=== PATIENT | female | born 1945 | race Hispanic/Latino ===

== ENCOUNTER 2018-07-08 16:37 | Emergency (ER) | payer MEDICARE ==
[~2018-07-08] VITALS: Ht 154.9 cm; Wt 72.6 kg
[~2018-07-08 16:37] MED LIST: BENZONATATE100 MG PO; D3 DOTS2000 UNIT PO; LANTUS SOLOSTAR SQ; METOPROLOL SUCC25 MG PO; PRAVASTATIN SOD40 MG PO
--- OUTSIDE RECORDS SUMMARY | 2018-07-08 16:40 | XMS REPORT ---
Author Author [facility] Address Unknown Phone Unavailable Care Team Providers Care Psychological Operations Specialist Name Role Phone Geovanny ANTOINE Unavailable Unavailable Problems This patient has no known problems. Allergies, Adverse Reactions, Alerts This patient has no known allergies or adverse reactions. Medications This patient has no known medications. Results Test Description Test Time Test Comments Text Results Atomic Results Result Comments CHEST SINGLE (PORTABLE) [place] [address] Patient Name: RAMIREZ MULLINS MR #: [id number] : 1945 Age/Sex: 72/F Req #: [id number] Adm Physician: Ordered by: GILMER KENNEDY MD Report #: [id number] Location: ER Room/Bed: Procedure: [id number] DX/CHEST SINGLE (PORTABLE) Exam Date: 02/23/17 Exam Time: 1905 REPORT STATUS: Signed CHEST SINGLE (PORTABLE), 02/23/2017 6:53 PM Technique: CHEST SINGLE (PORTABLE) Clinical history: Possible illness, low blood pressure Comparison: 06/17/2008 Findings: See Impression Impression: 1. Moderately enlarged cardiac silhouette, appears increased from 2007. 2. Diffuse opacities, likely edema with bibasilar atelectasis and small effusions, left greater the right. 3. Electronic precordial pacer/ICD overlies the left hemithorax. Signed by: Dr Dorcas Mckeon MD on 02/23/2017 7:41 PM Dictated By: DORCAS MCKEON MD 40 Transcribed By: SEVEN on 02/23/171940 COPY TO: GILMER KENNEDY MD
--- OUTSIDE RECORDS SUMMARY | 2018-07-08 16:40 | XMS REPORT | Clinical Summary ---
Author Author [facility] Address Unknown Phone Unavailable Care Team Providers Care Sheeter Helper Name Role Phone Valente Mejia PCP Allergies Comments Active Allergy Reactions Severity Noted Date Shellfish Containing Hives 02/04/2018 Products Medications End Date Status Medication Sig Dispensed Refills Start Date Active pravastatin (PRAVACHOL) Take 40 mg by 0 40 MG tablet mouth daily. Active calcium acetate (PHOSLO) Take 2,001 mg 0 667 mg capsule by mouth 3 (three) times daily with meals Takes 4 capsules with each meal . Active metoprolol Take by 0 crowe-hydrochlorothiaz mouth. 100-12.5 mg Tb24 Active metoprolol (TOPROL-XL) 25 Take 12.5 mg 0 MG 24 hr tablet by mouth every evening. Active ferrous sulfate 325 (65 Take 325 mg 0 FE) MG EC tablet by mouth daily. Active cholecalciferol (VITAMIN Take 1,000 0 D3) 1,000 unit tablet Units by mouth daily. Active insulin glargine (LANTUS) Inject 20 0 100 unit/mL injection Units subcutaneousl y nightly Use as directed . Active Problems Problem Noted Date ESRD (end stage renal disease) Overview: on dialysis at [facility] since maybe 3 years, prior on pd ESRD (end stage renal disease) Overview: on dialysis at [facility] since maybe 3 years, prior on pd Encounters Care Team Description Date Type Specialty Roshni Keenan RN 07/07/2018 Abstract Transplant Roshni Keenan RN 07/01/2018 Abstract Transplant Roshni Keenan, RN Follow-up 06/26/2018 Telephone Transplant Roshni Keenan RN Follow-up 06/19/2018 Telephone Transplant Roshni Keenan RN 04/30/2018 Documentation Transplant Chencho Marquez MD Finch, Jennifer L., MD ESRD (end stage renal disease) (HCC) (Primary Dx) 04/09/2018 Evaluation Transplant Saenz, Winifred 02/27/2018 Abstract Transplant Saenz, Winifred 02/26/2018 Abstract Transplant Perez, Marcyla 02/05/2018 Abstract Transplant Perez, Deidraeila 02/05/2018 Abstract Transplant Saenz, Winifred 02/04/2018 Abstract Transplant Saenz, Winifred 02/04/2018 Abstract Transplant after 07/07/2017 Family History Medical History Relation Name Comments Cancer Brother Diabetes Brother Heart disease Brother No Known Problem Daughter Heart disease Father Heart disease Mother Cancer Sister Cancer Sister Cancer Sister Diabetes Son Heart disease Son No Known Problem Son No Known Problem Son No Known Problem Son Relation Name Status Comments Brother Alive Brother Alive Brother Daughter Alive Father Mother Sister Alive Sister Sister Sister Sister Alive Sister Alive Son Alive Son Alive Son Alive Son Alive Social History Date Tobacco Use Types Packs/Day Years Used Never Smoker Smokeless Tobacco: Never Used Alcohol Use Drinks/Week oz/Week Comments No Sex Assigned at Date Recorded Not on file Industry Job Start Date Occupation Not on file Not on file Not on file Travel End Travel History Travel Start No recent travel history available. Last Filed Vital Signs Time Taken Vital Sign Reading 04/09/2018 1:26 PM CDT Blood Pressure 126/71 04/09/2018 1:26 PM CDT Pulse 87 04/09/2018 1:26 PM CDT Temperature 36.8 C (98.3 F) 04/09/2018 1:26 PM CDT Respiratory Rate 18 - Oxygen Saturation - - Inhaled Oxygen - Concentration 04/09/2018 1:26 PM CDT Weight 70.8 kg (156 lb) 04/09/2018 1:26 PM CDT Height 154.9 cm (5' 1") 04/09/2018 1:26 PM CDT Body Mass Index 29.48 Plan of Treatment Not on file Results Not on fileafter 07/07/2017 Insurance Payer Benefit Subscriber ID Type Phone Address Plan / Group [employer] C[employer] xxxxxxxxxxxxx [facility] [employer] Contracted ALL
[2018-07-08 18:45] LABS: BASOPHILS % 0.3 % (0.0-1.0); EOSINOPHILS # (AUTO) 0.2 (0.0-0.4); EOSINOPHILS % 1.6 % (0.0-6.0); HEMATOCRIT 37.1 % (34.2-44.1); HEMOGLOBIN 12.2 g/dL (12.0-16.0); LYMPHOCYTES # (AUTO) 1.8 (1.0-3.2); LYMPHOCYTES % 18.4 % (18.0-39.1); MEAN CORPUSCULAR HEMOGLOBIN 31.7 pg (28-32); MEAN CORPUSCULAR HGB CONC 32.9 g/dL (31-35); MEAN CORPUSCULAR VOLUME 96.4 fL (81-99); MONOCYTES # (AUTO) 0.7 (0.2-0.8); NEUTROPHILS # (AUTO) 6.9 (2.1-6.9); NEUTROPHILS % 72.1 % (38.7-80.0); PLATELET COUNT 203 x10e3/uL (140-360); RED BLOOD COUNT 3.85 x10e6/uL (3.6-5.1); RED CELL DISTRIBUTION WIDTH 16.9 % (11.7-14.4)
[2018-07-08 19:04] LABS: ALBUMIN 3.6 g/dL (3.5-5.0); ALBUMIN/GLOBULIN RATIO 1.1 (0.8-2.0); ANION GAP 15.7 mmol/L (8-16); CALCIUM 9.8 mg/dL (8.4-10.2); CREATININE, SERUM 5.29 mg/dL (0.57-1.11); POTASSIUM 3.7 mmol/L (3.5-5.1)
--- NOTE | 2018-07-08 19:13 | NUR ---
Walking rounds with RUBY Young. Patient in no distress at this time.
[2018-07-08] MEDS ORDERED: DIATRIZOATE MEGL/DIATRIZOA SOD 30 ML BTL PO ONE ×2 (20:08→20:11)
--- NOTE | 2018-07-08 21:45 | Diagnostic Imaging Report ---
EXAM: CT ABDOMEN AND PELVIS with IV CONTRAST DATE: 07/08/2018 7:50 PM Time stamp on Exam: 2126 hours INDICATION: Left side pain, history of diverticulitis, left flank pain COMPARISON: None TECHNIQUE: The abdomen and pelvis were scanned using a multidetector helical scanner. Coronal and sagittal reformations were obtained. Dose modulation, iterative reconstruction, and/or weight based adjustment of the mA/kV was utilized to reduce the radiation dose to as low as reasonably achievable. Routine protocol performed. IV Contrast: 100 cc Isovue-370 Oral Contrast: Gastrografin FINDINGS: LOWER THORAX: No consolidations LIVER: No masses BILIARY: Cholecystectomy. No ductal dilation. SPLEEN: No masses PANCREAS: No masses ADRENALS: No nodules KIDNEYS: Symmetric perfusion. No hydronephrosis. The kidneys are small bilaterally consistent with chronic medical renal disease. There are 2 subcentimeter cortical hypodensities at the superior aspect of the left kidney are too small to characterize. There is a 1.3 cm hyperdense cortical mass in the medial cortex of the inferior right kidney. GI TRACT: No distention, wall thickening or evidence of obstruction. Surgical sutures around the sigmoid colon. The appendix is not visualized. VESSELS: Moderate calcified atherosclerotic changes of the abdominal aorta and branches without evidence of aneurysm. PERITONEUM/RETROPERITONEUM: No free air or fluid LYMPH NODES: No lymphadenopathy REPRODUCTIVE ORGANS: Uterus and ovaries are not visualized. BLADDER: Decompressed SOFT TISSUES: Partially visualized left lateral chest generator. Tiny fat-containing umbilical hernia. BONES: Bilateral linear areas of sclerosis at the lower sacrum consistent with prior insufficiency fractures. IMPRESSION: No CT findings to explain patient's acute left-sided pain. No evidence of diverticulitis. Indeterminate 1.3 cm hyperdense cortical mass in the inferior pole of the right kidney. If there are no priors available for comparison, a CT of the abdomen with and without IV contrast, renal mass protocol is recommended to evaluate for renal cell carcinoma. Signed by: Dr. Ashly Zavala M.D. on 07/08/2018 9:41 PM
[2018-07-08] MEDS ORDERED: IOPAMIDOL 370 MG/ML 200 ML INFUS..BTL INJ ONE (22:39)
[2018-07-08] MEDS ORDERED: SODIUM CHLORIDE 0.9% 50ML 50 ML ONE (22:39)
[2018-07-08 22:40] VITALS: BP 104/50
== END 2018-07-08 22:55 | disposition home or self-care (01) ==
LOC: ER 16:37
DX: R10.32 Left lower quadrant pain (principal); M54.5 Low back pain; G89.11 Acute pain due to trauma; E11.22 Type 2 diabetes mellitus with diabetic chronic kidney disease; I12.0 Hypertensive chronic kidney disease with stage 5 chronic kidney disease or end stage renal disease; N18.6 End stage renal disease; Z99.2 Dependence on renal dialysis; Z79.4 Long term (current) use of insulin
CPT/HCPCS: 36415; 74177; 80053; 85025; 93005; 99284; Q9967

== ENCOUNTER → 2020-11-11 | Outpatient (CLI) | payer MEDICARE | LOC: RAD 08:26 | PROVIDERS: ATTEND Internal Medicine | DX: I50.9 Heart failure, unspecified (principal) | CPT/HCPCS: 93306 ==

== ENCOUNTER 2021-04-25 15:39 | Inpatient (IN) | payer MEDICARE ==
[~2021-04-25] VITALS: Ht 154.9 cm; Wt 77.1 kg
[2021-04-25] MEDS ORDERED: DILTIAZEM HCL 5 MG/ML 5 ML VIAL IV ONE (16:15)
[2021-04-25 17:06] LABS: BASOPHILS % 0.2 % (0.0-1.0); EOSINOPHILS # (AUTO) 0.1 (0.0-0.4); EOSINOPHILS % 0.4 % (0.0-6.0); HEMATOCRIT 36.8 % (34.2-44.1); HEMOGLOBIN 11.3 g/dL (12.0-16.0); LYMPHOCYTES # (AUTO) 1.5 (1.0-3.2); LYMPHOCYTES % 9.3 % (18.0-39.1); MEAN CORPUSCULAR HGB CONC 30.7 g/dL (31-35); MEAN CORPUSCULAR VOLUME 100.8 fL (81-99); MONOCYTES # (AUTO) 0.6 (0.2-0.8); MONOCYTES % 3.5 % (4.4-11.3); NEUTROPHILS # (AUTO) 13.6 (2.1-6.9); NEUTROPHILS % 85.7 % (38.7-80.0); PLATELET COUNT 193 x10e3/uL (140-360); RED BLOOD COUNT 3.65 x10e6/uL (3.6-5.1); RED CELL DISTRIBUTION WIDTH 15.5 % (11.7-14.4)
[2021-04-25] MEDS ORDERED: METOCLOPRAMIDE HCL 10 MG/2ML VIAL IV ONE (17:15)
[2021-04-25 17:16] LABS: INR 1.03; PROTHROMBIN TIME 14.3 seconds (11.9-14.5)
[2021-04-25 17:17] LABS: PARTIAL THROMBOPLASTIN TIME 35.8 seconds (23.8-35.5)
[2021-04-25] MEDS ORDERED: METOPROLOL TARTRATE INJ 1 MG/ML VIAL IV ONE (17:30)
[2021-04-25 17:31] LABS: ALBUMIN 3.6 g/dL (3.5-5.0); ALBUMIN/GLOBULIN RATIO 0.9 (0.8-2.0); CALCIUM 8.8 mg/dL (8.4-10.2); CREATININE, SERUM 5.03 mg/dL (0.57-1.11); MAGNESIUM 1.8 MG/DL (1.3-2.1)
[2021-04-25 17:38] LABS: CREATINE KINASE MB 4.5 ng/mL (0-5.0)
[2021-04-25 20:00] VITALS: BP 107/57
[2021-04-25] MEDS ORDERED: HEPARIN SOD (PORCINE) 1000 UNIT/ML SDV IV PRN (20:00)
[2021-04-25] MEDS ORDERED: ALBUMIN 25% 12.5GM 0.25 GM/ML BTL IV PRN (20:00)
[2021-04-25] MEDS ORDERED: MANNITOL 25% 12.5GM/50 ML VIAL IV PRN (20:00)
[2021-04-25] MEDS ORDERED: SODIUM CHLORIDE 0.9% 250ML 500 ML IV PRN (20:00)
[2021-04-25] MEDS ORDERED: SODIUM CHLORIDE 0.9% 1000ML 2,000 ML IV PRN (20:00)
[2021-04-25] MEDS: METOPROLOL TARTRATE INJ 1 MG/ML VIAL IV PRN (20:17)
[2021-04-25 23:46] LABS: CREATINE KINASE MB 6.6 ng/mL (0-5.0)
[2021-04-25 23:57] VITALS: BP 103/51
[2021-04-26] VITALS (9 sets, daily range): BP systolic 79–147; BP diastolic 45–63
[2021-04-26 04:55] LABS: BASOPHILS % 0.3 % (0.0-1.0); EOSINOPHILS # (AUTO) 0.1 (0.0-0.4); EOSINOPHILS % 0.7 % (0.0-6.0); HEMATOCRIT 31.1 % (34.2-44.1); HEMOGLOBIN 9.8 g/dL (12.0-16.0); LYMPHOCYTES # (AUTO) 1.6 (1.0-3.2); LYMPHOCYTES % 13.5 % (18.0-39.1); MEAN CORPUSCULAR HEMOGLOBIN 31.2 pg (28-32); MEAN CORPUSCULAR HGB CONC 31.5 g/dL (31-35); MONOCYTES # (AUTO) 0.8 (0.2-0.8); MONOCYTES % 6.8 % (4.4-11.3); NEUTROPHILS # (AUTO) 9.3 (2.1-6.9); NEUTROPHILS % 78.2 % (38.7-80.0); PLATELET COUNT 210 x10e3/uL (140-360); RED BLOOD COUNT 3.14 x10e6/uL (3.6-5.1); RED CELL DISTRIBUTION WIDTH 15.7 % (11.7-14.4)
[2021-04-26 05:18] LABS: CREATINE KINASE MB 5.8 ng/mL (0-5.0)
[2021-04-26 05:32] LABS: ANION GAP 18.2 mmol/L (8-16); CALCIUM 8.8 mg/dL (8.4-10.2); CREATININE, SERUM 4.07 mg/dL (0.57-1.11); POTASSIUM 4.2 mmol/L (3.5-5.1)
[2021-04-26 05:54] LABS: MAGNESIUM 1.9 MG/DL (1.3-2.1); PHOSPHORUS 2.8 MG/DL (2.3-4.7)
[2021-04-26] MEDS ORDERED: HEPARIN 25,000 UNIT 700 UNIT in DEXTROSE 5% 250ML 250 ML IV SCH (06:15)
[2021-04-26] MEDS ORDERED: HEPARIN 25,000 UNIT DRIP IV ONE (06:43)
[2021-04-26] MEDS ORDERED: HEPARIN SOD (PORCINE) 1000 UNIT/ML SDV IV ONE (09:15)
[2021-04-26] MEDS ORDERED: HEPARIN 25,000 UNIT 25,000 UNIT in DEXTROSE 5% 250ML 250 ML IV SCH (09:15)
[2021-04-26] MEDS: HEPARIN 25,000 UNIT 700 UNIT in DEXTROSE 5% 250ML 250 ML IV SCH (10:10)
[2021-04-26] MEDS: ONDANSETRON HCL INJ 2MG/ML 2ML 2 MG/ML VIAL IV PRN (12:17)
[2021-04-26] MEDS: METOPROLOL TARTRATE INJ 1 MG/ML VIAL IV PRN (12:18)
[2021-04-26] MEDS ORDERED: ATORVASTATIN CA20 MG PO (12:58)
[2021-04-26] MEDS ORDERED: HYDROXYZINE HCL10 MG PO (12:58)
[2021-04-26] MEDS ORDERED: CALCIUM ACETAT667 M1 PO (12:59)
[2021-04-26] MEDS ORDERED: FEXOFENADINE H180 MG PO (12:59)
[2021-04-26 16:10] LABS: INR 1.16; PROTHROMBIN TIME 15.7 seconds (11.9-14.5)
[2021-04-26 16:11] LABS: PARTIAL THROMBOPLASTIN TIME 60.4 seconds (23.8-35.5)
[2021-04-26 16:25] LABS: CREATINE KINASE MB 2.2 ng/mL (0-5.0)
[2021-04-26] MEDS ORDERED: INSULIN REGULAR, HUMAN 100 UNIT/1 ML SQ SCH (16:30)
[2021-04-26] MEDS: METOPROLOL TARTRATE 25 MG TAB PO SCH (17:15)
[2021-04-26] MEDS: INSULIN LISPRO 100 UNIT/1 ML 3ML VIAL SQ SCH ×2 (17:15→21:49)
[2021-04-26] MEDS ORDERED: SODIUM CHLORIDE 0.9% 1000ML 2,000 ML IV PRN (19:15)
[2021-04-26] MEDS: ALBUMIN 25% 12.5GM 0.25 GM/ML BTL IV PRN ×2 (20:43→21:45)
[2021-04-26] MEDS ORDERED: ALBUMIN 25% 25GM 100ML 100 ML ONE ×2 (20:45→21:53)
[2021-04-26] MEDS ORDERED: METOPROLOL SUCCINATE 25 MG TAB XL PO SCH (21:00)
[2021-04-26] MEDS: ATORVASTATIN 40 MG TAB PO SCH (21:44)
[2021-04-26] MEDS: HYDROXYZINE HCL 10 MG TAB PO SCH (21:45)
[2021-04-26] MEDS ORDERED: Vancomycin IV 1 GM in SODIUM CHLORIDE 0.9% 250ML 250 ML IV ONE (22:00)
[2021-04-26] MEDS ORDERED: SODIUM CHLORIDE 0.9% 250ML 250 ML IV ONE (22:00)
[2021-04-26] MEDS ORDERED: SODIUM CHLORIDE 0.9% 250ML 250 ML ONE ×2 (22:19→23:36)
[2021-04-26] MEDS ORDERED: Vancomycin IV 1 GM VIAL ONE (23:36)
[2021-04-26] MEDS ORDERED: VASOPRESSIN 60 UNIT in DEXTROSE 5% 50ML 57 ML IV PRN (23:45)
[2021-04-27] VITALS (24 sets, daily range): BP systolic 85–125; BP diastolic 27–90
[2021-04-27] MEDS ORDERED: NOREPINEPHRINE 8 MG/D5W 250 ML 250 ML ONE (00:55)
[2021-04-27] MEDS ORDERED: DOBUtamine HCL 500MG/D5W 250ML 250 ML IV ONE (01:41)
[2021-04-27 01:53] LABS: BASOPHILS % 0.3 % (0.0-1.0); EOSINOPHILS # (AUTO) 0.1 (0.0-0.4); EOSINOPHILS % 0.6 % (0.0-6.0); HEMATOCRIT 27.3 % (34.2-44.1); HEMOGLOBIN 8.3 g/dL (12.0-16.0); LYMPHOCYTES # (AUTO) 3.1 (1.0-3.2); LYMPHOCYTES % 26.4 % (18.0-39.1); MEAN CORPUSCULAR HEMOGLOBIN 31.4 pg (28-32); MEAN CORPUSCULAR HGB CONC 30.4 g/dL (31-35); MEAN CORPUSCULAR VOLUME 103.4 fL (81-99); MONOCYTES # (AUTO) 0.7 (0.2-0.8); NEUTROPHILS # (AUTO) 7.7 (2.1-6.9); NEUTROPHILS % 65.9 % (38.7-80.0); PLATELET COUNT 151 x10e3/uL (140-360); RED BLOOD COUNT 2.64 x10e6/uL (3.6-5.1); RED CELL DISTRIBUTION WIDTH 15.9 % (11.7-14.4)
[2021-04-27 01:58] LABS: INR 1.29; PROTHROMBIN TIME 17.1 seconds (11.9-14.5)
[2021-04-27 01:59] LABS: PARTIAL THROMBOPLASTIN TIME 32.9 seconds (23.8-35.5)
[2021-04-27 02:44] LABS: ALBUMIN 2.1 g/dL (3.5-5.0); ALBUMIN/GLOBULIN RATIO 1.5 (0.8-2.0); ANION GAP 16.5 mmol/L (8-16); CREATININE, SERUM 4.01 mg/dL (0.57-1.11); POTASSIUM 3.5 mmol/L (3.5-5.1)
[2021-04-27 02:45] LABS: CALCIUM 7.3 mg/dL (8.4-10.2)
[2021-04-27 02:51] LABS: CREATINE KINASE MB 0.8 ng/mL (0-5.0)
[2021-04-27] MEDS: CEFEPIME 1 GM in SODIUM CHLORIDE 0.9% 50ML 50 ML IV SCH (04:48)
[2021-04-27 05:05] LABS: BASOPHILS % 0.3 % (0.0-1.0); EOSINOPHILS % 0.2 % (0.0-6.0); HEMATOCRIT 29.2 % (34.2-44.1); LYMPHOCYTES # (AUTO) 1.5 (1.0-3.2); LYMPHOCYTES % 11.4 % (18.0-39.1); MEAN CORPUSCULAR HEMOGLOBIN 31.4 pg (28-32); MEAN CORPUSCULAR HGB CONC 30.8 g/dL (31-35); MEAN CORPUSCULAR VOLUME 101.7 fL (81-99); MONOCYTES # (AUTO) 0.8 (0.2-0.8); MONOCYTES % 6.5 % (4.4-11.3); NEUTROPHILS # (AUTO) 10.4 (2.1-6.9); NEUTROPHILS % 80.9 % (38.7-80.0); PLATELET COUNT 190 x10e3/uL (140-360); RED BLOOD COUNT 2.87 x10e6/uL (3.6-5.1); RED CELL DISTRIBUTION WIDTH 15.5 % (11.7-14.4)
[2021-04-27 05:24] LABS: ALBUMIN 3.6 g/dL (3.5-5.0); ALBUMIN/GLOBULIN RATIO 1.2 (0.8-2.0); ANION GAP 24.7 mmol/L (8-16); CALCIUM 8.9 mg/dL (8.4-10.2); CREATININE, SERUM 6.13 mg/dL (0.57-1.11); POTASSIUM 4.7 mmol/L (3.5-5.1)
[2021-04-27] MEDS: INSULIN LISPRO 100 UNIT/1 ML 3ML VIAL SQ SCH ×4 (07:30→22:46)
[2021-04-27] MEDS: METOPROLOL TARTRATE 25 MG TAB PO SCH ×2 (09:00→17:00)
[2021-04-27] MEDS: LORATADINE 10 MG TAB PO SCH (09:00)
[2021-04-27] MEDS: HEPARIN 25,000 UNIT 700 UNIT in DEXTROSE 5% 250ML 250 ML IV SCH (09:30)
[2021-04-27] MEDS: NOREPINEPHRINE 8 MG/D5W 250 ML 250 ML IV PRN (11:17)
[2021-04-27] MEDS ORDERED: VERAPAMIL HCL 2.5 MG/ML 2 ML VIAL ONE (12:00)
[2021-04-27] MEDS ORDERED: HEPARIN SOD (PORCINE) 1000 UNIT/ML 30ML ONE (12:00)
[2021-04-27] MEDS ORDERED: MIDAZOLAM HCL 2 MG/2 ML VIAL ONE (12:01)
[2021-04-27] MEDS ORDERED: FENTANYL CITRATE/PF 100MCG/2 ML INJ ONE (12:02)
[2021-04-27] MEDS ORDERED: LIDOCAINE HCL 2% LOCAL 20 ML VIAL ONE (12:02)
[2021-04-27] MEDS ORDERED: IOPAMIDOL 370 MG/ML 200 ML INFUS..BTL INJ ONE (12:03)
[2021-04-27] MEDS ORDERED: HEPARIN SOD/SOD CHLORIDE 2,000 ML ONE (12:03)
[2021-04-27] MEDS ORDERED: SODIUM CHLORIDE 0.9% 1000ML 1,000 ML ONE (12:04)
[2021-04-27] MEDS ORDERED: NITROGLYCERIN/D5W 200 MCG/ML 250 ML ONE (12:04)
[2021-04-27] MEDS: ONDANSETRON HCL INJ 2MG/ML 2ML 2 MG/ML VIAL IV PRN (12:34)
[2021-04-27] MEDS ORDERED: SODIUM CHLORIDE 0.9% 500ML 500 ML ONE (16:32)
[2021-04-27] MEDS ORDERED: SODIUM CHLORIDE 0.9% 50ML 0 ML ONE (16:48)
[2021-04-27] MEDS ORDERED: PHENYLEPHRINE HCL 1% 10 MG/ML VIAL ONE (16:48)
[2021-04-27] MEDS ORDERED: CLOPIDOGREL BISULFATE 75 MG TAB ONE (16:51)
[2021-04-27] MEDS ORDERED: ASPIRIN 325 MG TAB ONE (16:52)
[2021-04-27] MEDS: HYDROXYZINE HCL 10 MG TAB PO SCH (22:44)
[2021-04-27] MEDS: ATORVASTATIN 40 MG TAB PO SCH (22:44)
[2021-04-28] VITALS (24 sets, daily range): BP systolic 75–108; BP diastolic 32–72
[2021-04-28] MEDS: CEFEPIME 1 GM in SODIUM CHLORIDE 0.9% 50ML 50 ML IV SCH (02:00)
[2021-04-28 06:10] LABS: BASOPHILS # (AUTO) 0.1 (0.0-0.1); BASOPHILS % 0.5 % (0.0-1.0); EOSINOPHILS # (AUTO) 0.2 (0.0-0.4); EOSINOPHILS % 1.7 % (0.0-6.0); HEMATOCRIT 27.1 % (34.2-44.1); HEMOGLOBIN 8.5 g/dL (12.0-16.0); LYMPHOCYTES # (AUTO) 1.4 (1.0-3.2); LYMPHOCYTES % 12.9 % (18.0-39.1); MEAN CORPUSCULAR HEMOGLOBIN 31.3 pg (28-32); MEAN CORPUSCULAR HGB CONC 31.4 g/dL (31-35); MEAN CORPUSCULAR VOLUME 99.6 fL (81-99); MONOCYTES # (AUTO) 0.9 (0.2-0.8); MONOCYTES % 8.6 % (4.4-11.3); NEUTROPHILS % 75.9 % (38.7-80.0); PLATELET COUNT 167 x10e3/uL (140-360); RED BLOOD COUNT 2.72 x10e6/uL (3.6-5.1); RED CELL DISTRIBUTION WIDTH 15.3 % (11.7-14.4)
[2021-04-28 06:29] LABS: ALBUMIN 3.6 g/dL (3.5-5.0); ALBUMIN/GLOBULIN RATIO 1.1 (0.8-2.0); CALCIUM 9.6 mg/dL (8.4-10.2); CREATININE, SERUM 4.4 mg/dL (0.57-1.11)
[2021-04-28] MEDS: METOPROLOL TARTRATE 25 MG TAB PO SCH ×2 (07:33→17:00)
[2021-04-28] MEDS: INSULIN LISPRO 100 UNIT/1 ML 3ML VIAL SQ SCH ×4 (07:55→23:01)
[2021-04-28] MEDS: ONDANSETRON HCL INJ 2MG/ML 2ML 2 MG/ML VIAL IV PRN ×2 (08:59→14:37)
[2021-04-28] MEDS: HEPARIN 25,000 UNIT 700 UNIT in DEXTROSE 5% 250ML 250 ML IV SCH (09:30)
[2021-04-28] MEDS: LORATADINE 10 MG TAB PO SCH (10:35)
[2021-04-28] MEDS: ASPIRIN 81 MG ENTERIC COATED PO SCH (14:37)
[2021-04-28] MEDS: CLOPIDOGREL BISULFATE 75 MG TAB PO SCH (14:37)
[2021-04-28] MEDS: ATORVASTATIN 40 MG TAB PO SCH (23:00)
[2021-04-28] MEDS: HYDROXYZINE HCL 10 MG TAB PO SCH (23:00)
[2021-04-29] VITALS (25 sets, daily range): BP systolic 80–107; BP diastolic 34–60
[2021-04-29] MEDS: CEFEPIME 1 GM in SODIUM CHLORIDE 0.9% 50ML 50 ML IV SCH (03:59)
[2021-04-29 06:12] LABS: BASOPHILS % 0.4 % (0.0-1.0); EOSINOPHILS # (AUTO) 0.2 (0.0-0.4); HEMATOCRIT 29.9 % (34.2-44.1); HEMOGLOBIN 9.4 g/dL (12.0-16.0); LYMPHOCYTES # (AUTO) 1.3 (1.0-3.2); LYMPHOCYTES % 12.6 % (18.0-39.1); MEAN CORPUSCULAR HEMOGLOBIN 31.1 pg (28-32); MEAN CORPUSCULAR HGB CONC 31.4 g/dL (31-35); MONOCYTES % 9.6 % (4.4-11.3); NEUTROPHILS # (AUTO) 7.9 (2.1-6.9); NEUTROPHILS % 74.5 % (38.7-80.0); PLATELET COUNT 180 x10e3/uL (140-360); RED BLOOD COUNT 3.02 x10e6/uL (3.6-5.1); RED CELL DISTRIBUTION WIDTH 14.9 % (11.7-14.4)
[2021-04-29 06:26] LABS: ANION GAP 24.1 mmol/L (8-16); CALCIUM 9.2 mg/dL (8.4-10.2); CREATININE, SERUM 5.82 mg/dL (0.57-1.11); POTASSIUM 4.1 mmol/L (3.5-5.1)
[2021-04-29] MEDS: CLOPIDOGREL BISULFATE 75 MG TAB PO SCH (08:10)
[2021-04-29] MEDS: INSULIN LISPRO 100 UNIT/1 ML 3ML VIAL SQ SCH ×3 (08:10→16:30)
[2021-04-29] MEDS: METOPROLOL TARTRATE 25 MG TAB PO SCH ×2 (08:10→16:35)
[2021-04-29] MEDS: ASPIRIN 81 MG ENTERIC COATED PO SCH (08:10)
[2021-04-29] MEDS: LORATADINE 10 MG TAB PO SCH (08:10)
[2021-04-29] MEDS: ONDANSETRON HCL INJ 2MG/ML 2ML 2 MG/ML VIAL IV PRN ×2 (08:33→13:13)
[2021-04-29] MEDS: HEPARIN 25,000 UNIT 700 UNIT in DEXTROSE 5% 250ML 250 ML IV SCH (08:39)
[2021-04-29] MEDS: NOREPINEPHRINE 8 MG/D5W 250 ML 250 ML IV PRN ×2 (11:53→18:28)
[2021-04-29] MEDS: ACETAMINOPHEN 325 MG TAB PO PRN (16:15)
[2021-04-29] MEDS: DOBUtamine HCL 500MG/D5W 250ML 250 ML IV PRN (17:01)
[2021-04-30] VITALS (25 sets, daily range): BP systolic 82–120; BP diastolic 31–68
[2021-04-30] MEDS ORDERED: SODIUM CHLORIDE 0.9% 1000ML 1,000 ML ONE (03:07)
[2021-04-30] MEDS: ATORVASTATIN 40 MG TAB PO SCH ×2 (04:21→21:29)
[2021-04-30] MEDS: HYDROXYZINE HCL 10 MG TAB PO SCH ×2 (04:21→21:29)
[2021-04-30] MEDS: CEFEPIME 1 GM in SODIUM CHLORIDE 0.9% 50ML 50 ML IV SCH (04:22)
[2021-04-30] MEDS: INSULIN LISPRO 100 UNIT/1 ML 3ML VIAL SQ SCH ×5 (04:23→21:29)
[2021-04-30 05:59] LABS: BASOPHILS # (AUTO) 0.1 (0.0-0.1); BASOPHILS % 0.6 % (0.0-1.0); EOSINOPHILS # (AUTO) 0.3 (0.0-0.4); EOSINOPHILS % 2.7 % (0.0-6.0); HEMATOCRIT 29.7 % (34.2-44.1); HEMOGLOBIN 9.3 g/dL (12.0-16.0); LYMPHOCYTES # (AUTO) 1.5 (1.0-3.2); MEAN CORPUSCULAR HEMOGLOBIN 30.7 pg (28-32); MEAN CORPUSCULAR HGB CONC 31.3 g/dL (31-35); MONOCYTES # (AUTO) 0.9 (0.2-0.8); MONOCYTES % 8.4 % (4.4-11.3); NEUTROPHILS # (AUTO) 7.3 (2.1-6.9); NEUTROPHILS % 69.8 % (38.7-80.0); PLATELET COUNT 169 x10e3/uL (140-360); RED BLOOD COUNT 3.03 x10e6/uL (3.6-5.1); RED CELL DISTRIBUTION WIDTH 14.8 % (11.7-14.4)
[2021-04-30 06:21] LABS: ALBUMIN 3.2 g/dL (3.5-5.0); ALBUMIN/GLOBULIN RATIO 0.9 (0.8-2.0); ANION GAP 17.7 mmol/L (8-16); CREATININE, SERUM 3.86 mg/dL (0.57-1.11); POTASSIUM 3.7 mmol/L (3.5-5.1)
[2021-04-30] MEDS: METOPROLOL TARTRATE 25 MG TAB PO SCH ×2 (09:00→15:59)
[2021-04-30] MEDS: CLOPIDOGREL BISULFATE 75 MG TAB PO SCH (09:18)
[2021-04-30] MEDS: ASPIRIN 81 MG ENTERIC COATED PO SCH (09:18)
[2021-04-30] MEDS: LORATADINE 10 MG TAB PO SCH (09:18)
[2021-04-30] MEDS: DOBUtamine HCL 500MG/D5W 250ML 250 ML IV PRN (16:00)
[2021-05-01] VITALS (24 sets, daily range): BP systolic 84–111; BP diastolic 32–75
[2021-05-01] MEDS: CEFEPIME 1 GM in SODIUM CHLORIDE 0.9% 50ML 50 ML IV SCH (01:33)
[2021-05-01 04:59] LABS: BASOPHILS # (AUTO) 0.1 (0.0-0.1); BASOPHILS % 0.6 % (0.0-1.0); EOSINOPHILS # (AUTO) 0.4 (0.0-0.4); EOSINOPHILS % 3.1 % (0.0-6.0); HEMATOCRIT 28.4 % (34.2-44.1); LYMPHOCYTES # (AUTO) 1.7 (1.0-3.2); LYMPHOCYTES % 12.4 % (18.0-39.1); MEAN CORPUSCULAR HEMOGLOBIN 30.9 pg (28-32); MEAN CORPUSCULAR HGB CONC 31.7 g/dL (31-35); MEAN CORPUSCULAR VOLUME 97.6 fL (81-99); MONOCYTES # (AUTO) 1.1 (0.2-0.8); MONOCYTES % 7.8 % (4.4-11.3); NEUTROPHILS # (AUTO) 9.5 (2.1-6.9); NEUTROPHILS % 68.2 % (38.7-80.0); PLATELET COUNT 175 x10e3/uL (140-360); RED BLOOD COUNT 2.91 x10e6/uL (3.6-5.1); RED CELL DISTRIBUTION WIDTH 14.8 % (11.7-14.4)
[2021-05-01 05:27] LABS: ALBUMIN/GLOBULIN RATIO 0.9 (0.8-2.0); ANION GAP 19.8 mmol/L (8-16); CALCIUM 8.7 mg/dL (8.4-10.2); CREATININE, SERUM 5.67 mg/dL (0.57-1.11); POTASSIUM 3.8 mmol/L (3.5-5.1)
[2021-05-01] MEDS: INSULIN LISPRO 100 UNIT/1 ML 3ML VIAL SQ SCH ×4 (07:30→21:35)
[2021-05-01] MEDS: LORATADINE 10 MG TAB PO SCH (08:45)
[2021-05-01] MEDS: METOPROLOL TARTRATE 25 MG TAB PO SCH ×2 (08:45→17:00)
[2021-05-01] MEDS: ASPIRIN 81 MG ENTERIC COATED PO SCH (08:45)
[2021-05-01] MEDS: CLOPIDOGREL BISULFATE 75 MG TAB PO SCH (08:46)
[2021-05-01] MEDS ORDERED: ALBUMIN 5% 250ML 500 ML IV ONE (10:00)
[2021-05-01] MEDS: HYDROXYZINE HCL 10 MG TAB PO SCH (21:35)
[2021-05-01] MEDS ORDERED: SODIUM CHLORIDE 0.9% 50ML 50 ML ONE (21:35)
[2021-05-01] MEDS: ATORVASTATIN 40 MG TAB PO SCH (21:35)
[2021-05-01] MEDS ORDERED: SODIUM CHLORIDE 0.9% 250ML 250 ML ONE (23:50)
[2021-05-02] VITALS (24 sets, daily range): BP systolic 87–161; BP diastolic 41–133
[2021-05-02] MEDS: ONDANSETRON HCL INJ 2MG/ML 2ML 2 MG/ML VIAL IV PRN ×2 (00:35→06:10)
[2021-05-02] MEDS: CEFEPIME 1 GM in SODIUM CHLORIDE 0.9% 50ML 50 ML IV SCH (01:15)
[2021-05-02] MEDS: NOREPINEPHRINE 8 MG/D5W 250 ML 250 ML IV PRN (02:15)
[2021-05-02] MEDS: DOBUtamine HCL 500MG/D5W 250ML 250 ML IV PRN (06:11)
[2021-05-02 07:51] LABS: BASOPHILS # (AUTO) 0.1 (0.0-0.1); BASOPHILS % 0.6 % (0.0-1.0); EOSINOPHILS # (AUTO) 0.3 (0.0-0.4); EOSINOPHILS % 2.1 % (0.0-6.0); HEMATOCRIT 25.4 % (34.2-44.1); HEMOGLOBIN 8.2 g/dL (12.0-16.0); LYMPHOCYTES # (AUTO) 1.2 (1.0-3.2); LYMPHOCYTES % 8.1 % (18.0-39.1); MEAN CORPUSCULAR HEMOGLOBIN 30.8 pg (28-32); MEAN CORPUSCULAR HGB CONC 32.3 g/dL (31-35); MEAN CORPUSCULAR VOLUME 95.5 fL (81-99); MONOCYTES % 6.8 % (4.4-11.3); NEUTROPHILS # (AUTO) 11.1 (2.1-6.9); NEUTROPHILS % 74.4 % (38.7-80.0); PLATELET COUNT 204 x10e3/uL (140-360); RED BLOOD COUNT 2.66 x10e6/uL (3.6-5.1); RED CELL DISTRIBUTION WIDTH 14.8 % (11.7-14.4)
[2021-05-02 08:06] LABS: ANION GAP 19.1 mmol/L (8-16); CALCIUM 8.4 mg/dL (8.4-10.2); CREATININE, SERUM 7.25 mg/dL (0.57-1.11); POTASSIUM 4.1 mmol/L (3.5-5.1)
[2021-05-02] MEDS: INSULIN LISPRO 100 UNIT/1 ML 3ML VIAL SQ SCH ×4 (08:15→21:30)
[2021-05-02] MEDS: METOPROLOL TARTRATE 25 MG TAB PO SCH ×2 (09:00→17:00)
[2021-05-02] MEDS ORDERED: ALPRAZOLAM 0.25 MG TAB PO PRN (09:00)
[2021-05-02] MEDS: PROMETHAZINE 25MG/ NS 50ML (IV) IV PRN ×2 (09:29→09:30)
[2021-05-02] MEDS ORDERED: SODIUM CHLORIDE 0.9% 1000ML 2,000 ML IV PRN (10:00)
[2021-05-02] MEDS ORDERED: SODIUM CHLORIDE 0.9% 250ML 500 ML IV PRN (10:00)
[2021-05-02] MEDS ORDERED: Vancomycin IV 1 GM in SODIUM CHLORIDE 0.9% 250ML 250 ML IV ONE (12:30)
[2021-05-02] MEDS ORDERED: SODIUM CHLORIDE 0.9% IV PRN (12:30)
[2021-05-02] MEDS ORDERED: NOREPINEPHRINE IV PRN (12:30)
[2021-05-02] MEDS: ASPIRIN 81 MG ENTERIC COATED PO SCH (14:36)
[2021-05-02] MEDS: CLOPIDOGREL BISULFATE 75 MG TAB PO SCH (14:36)
[2021-05-02] MEDS ORDERED: NOREPINEPHRINE 8 MG/D5W 250 ML 0 ML ONE (20:41)
[2021-05-02] MEDS: ATORVASTATIN 40 MG TAB PO SCH (21:30)
[2021-05-02] MEDS: HYDROXYZINE HCL 10 MG TAB PO SCH (21:30)
[2021-05-03] VITALS (16 sets, daily range): BP systolic 92–123; BP diastolic 50–73
[2021-05-03 07:20] LABS: BASOPHILS # (AUTO) 0.1 (0.0-0.1); BASOPHILS % 0.5 % (0.0-1.0); EOSINOPHILS # (AUTO) 0.4 (0.0-0.4); EOSINOPHILS % 3.3 % (0.0-6.0); HEMATOCRIT 25.4 % (34.2-44.1); LYMPHOCYTES # (AUTO) 1.7 (1.0-3.2); LYMPHOCYTES % 12.6 % (18.0-39.1); MEAN CORPUSCULAR HEMOGLOBIN 30.9 pg (28-32); MEAN CORPUSCULAR HGB CONC 31.5 g/dL (31-35); MEAN CORPUSCULAR VOLUME 98.1 fL (81-99); MONOCYTES # (AUTO) 1.4 (0.2-0.8); MONOCYTES % 10.6 % (4.4-11.3); NEUTROPHILS % 66.4 % (38.7-80.0); PLATELET COUNT 258 x10e3/uL (140-360); RED BLOOD COUNT 2.59 x10e6/uL (3.6-5.1); RED CELL DISTRIBUTION WIDTH 15.2 % (11.7-14.4)
[2021-05-03 08:01] LABS: ANION GAP 15.3 mmol/L (8-16); CALCIUM 8.2 mg/dL (8.4-10.2); CREATININE, SERUM 4.61 mg/dL (0.57-1.11); POTASSIUM 3.3 mmol/L (3.5-5.1)
[2021-05-03] MEDS: INSULIN LISPRO 100 UNIT/1 ML 3ML VIAL SQ SCH ×4 (08:09→21:11)
[2021-05-03] MEDS ORDERED: POTASSIUM CHLORIDE 10MEQ EA PO ONE (08:30)
[2021-05-03] MEDS: METOPROLOL TARTRATE 25 MG TAB PO SCH ×2 (09:00→16:40)
[2021-05-03] MEDS: MIDODRINE 2.5 MG TAB PO SCH ×3 (09:26→15:10)
[2021-05-03] MEDS: CLOPIDOGREL BISULFATE 75 MG TAB PO SCH (09:27)
[2021-05-03] MEDS: ONDANSETRON HCL INJ 2MG/ML 2ML 2 MG/ML VIAL IV PRN (09:27)
[2021-05-03] MEDS: SODIUM CHLORIDE 1 GM TAB PO SCH ×3 (09:27→21:11)
[2021-05-03] MEDS: ASPIRIN 81 MG ENTERIC COATED PO SCH (09:27)
[2021-05-03] MEDS: ATORVASTATIN 40 MG TAB PO SCH (21:11)
[2021-05-03] MEDS: HYDROXYZINE HCL 10 MG TAB PO SCH (21:11)
[2021-05-04] VITALS (16 sets, daily range): BP systolic 99–119; BP diastolic 53–70
[2021-05-04 05:59] LABS: BASOPHILS # (AUTO) 0.1 (0.0-0.1); BASOPHILS % 0.8 % (0.0-1.0); EOSINOPHILS # (AUTO) 0.1 (0.0-0.4); EOSINOPHILS % 0.9 % (0.0-6.0); HEMATOCRIT 26.3 % (34.2-44.1); HEMOGLOBIN 8.3 g/dL (12.0-16.0); LYMPHOCYTES # (AUTO) 2.2 (1.0-3.2); LYMPHOCYTES % 16.3 % (18.0-39.1); MEAN CORPUSCULAR HEMOGLOBIN 31.1 pg (28-32); MEAN CORPUSCULAR HGB CONC 31.6 g/dL (31-35); MEAN CORPUSCULAR VOLUME 98.5 fL (81-99); MONOCYTES # (AUTO) 1.5 (0.2-0.8); MONOCYTES % 11.4 % (4.4-11.3); NEUTROPHILS # (AUTO) 8.7 (2.1-6.9); NEUTROPHILS % 65.5 % (38.7-80.0); PLATELET COUNT 300 x10e3/uL (140-360); RED BLOOD COUNT 2.67 x10e6/uL (3.6-5.1); RED CELL DISTRIBUTION WIDTH 15.3 % (11.7-14.4)
[2021-05-04 06:42] LABS: ANION GAP 19.7 mmol/L (8-16); CALCIUM 8.7 mg/dL (8.4-10.2); CREATININE, SERUM 6.21 mg/dL (0.57-1.11); POTASSIUM 4.7 mmol/L (3.5-5.1)
[2021-05-04] MEDS: INSULIN LISPRO 100 UNIT/1 ML 3ML VIAL SQ SCH ×4 (08:22→22:00)
[2021-05-04] MEDS: MIDODRINE 2.5 MG TAB PO SCH ×3 (08:32→15:21)
[2021-05-04] MEDS: ONDANSETRON HCL INJ 2MG/ML 2ML 2 MG/ML VIAL IV PRN (08:32)
[2021-05-04] MEDS: METOPROLOL TARTRATE 25 MG TAB PO SCH ×3 (09:00→17:00)
[2021-05-04] MEDS: ASPIRIN 81 MG ENTERIC COATED PO SCH (09:01)
[2021-05-04] MEDS: SODIUM CHLORIDE 1 GM TAB PO SCH ×3 (09:01→22:00)
[2021-05-04] MEDS: CLOPIDOGREL BISULFATE 75 MG TAB PO SCH (09:01)
[2021-05-04] MEDS ORDERED: LOPERAMIDE HCL 2 MG CAP PO ONE (10:45)
[2021-05-04] MEDS ORDERED: ALBUMIN 25% 25GM 100ML 0 ML ONE (11:10)
[2021-05-04] MEDS: LACTOBACILLUS ACIDOPHILUS CAPSULE PO SCH (17:49)
[2021-05-04] MEDS: ATORVASTATIN 40 MG TAB PO SCH (22:00)
[2021-05-04] MEDS: HYDROXYZINE HCL 10 MG TAB PO SCH (22:00)
[2021-05-05] VITALS (26 sets, daily range): BP systolic 87–111; BP diastolic 39–63
[2021-05-05 06:19] LABS: BASOPHILS # (AUTO) 0.1 (0.0-0.1); BASOPHILS % 0.5 % (0.0-1.0); EOSINOPHILS # (AUTO) 0.4 (0.0-0.4); EOSINOPHILS % 2.5 % (0.0-6.0); HEMATOCRIT 25.6 % (34.2-44.1); HEMOGLOBIN 8.1 g/dL (12.0-16.0); LYMPHOCYTES # (AUTO) 1.8 (1.0-3.2); LYMPHOCYTES % 11.9 % (18.0-39.1); MEAN CORPUSCULAR HEMOGLOBIN 31.3 pg (28-32); MEAN CORPUSCULAR HGB CONC 31.6 g/dL (31-35); MEAN CORPUSCULAR VOLUME 98.8 fL (81-99); MONOCYTES # (AUTO) 1.3 (0.2-0.8); MONOCYTES % 8.9 % (4.4-11.3); NEUTROPHILS % 73.5 % (38.7-80.0); PLATELET COUNT 304 x10e3/uL (140-360); RED BLOOD COUNT 2.59 x10e6/uL (3.6-5.1); RED CELL DISTRIBUTION WIDTH 15.5 % (11.7-14.4)
[2021-05-05 06:45] LABS: CALCIUM 9.3 mg/dL (8.4-10.2); CREATININE, SERUM 4.59 mg/dL (0.57-1.11)
[2021-05-05] MEDS: CLOPIDOGREL BISULFATE 75 MG TAB PO SCH (08:01)
[2021-05-05] MEDS: MIDODRINE 2.5 MG TAB PO SCH (08:01)
[2021-05-05] MEDS: ASPIRIN 81 MG ENTERIC COATED PO SCH (08:01)
[2021-05-05] MEDS: LACTOBACILLUS ACIDOPHILUS CAPSULE PO SCH ×2 (08:01→16:46)
[2021-05-05] MEDS: METOPROLOL TARTRATE 25 MG TAB PO SCH ×2 (08:01→16:32)
[2021-05-05] MEDS: SODIUM CHLORIDE 1 GM TAB PO SCH (08:02)
[2021-05-05] MEDS: INSULIN LISPRO 100 UNIT/1 ML 3ML VIAL SQ SCH ×4 (08:15→21:51)
[2021-05-05] MEDS: ONDANSETRON HCL INJ 2MG/ML 2ML 2 MG/ML VIAL IV PRN ×3 (08:21→16:47)
[2021-05-05 10:41] LABS: AMYLASE 58 U/L (25-125); LIPASE 49 U/L (8-78)
[2021-05-05] MEDS: MIDODRINE HCL 5 MG TABLET PO SCH ×2 (12:08→16:46)
[2021-05-05] MEDS: ATORVASTATIN 40 MG TAB PO SCH (21:56)
[2021-05-05] MEDS: HYDROXYZINE HCL 10 MG TAB PO SCH (21:56)
[2021-05-06] VITALS (24 sets, daily range): BP systolic 78–119; BP diastolic 37–66
[2021-05-06] MEDS ORDERED: SODIUM CHLORIDE 0.9% 50ML 50 ML ONE (03:49)
[2021-05-06 07:07] LABS: ALBUMIN 2.7 g/dL (3.5-5.0); ALBUMIN/GLOBULIN RATIO 0.8 (0.8-2.0); ANION GAP 19.2 mmol/L (8-16); CALCIUM 9.1 mg/dL (8.4-10.2); CREATININE, SERUM 6.42 mg/dL (0.57-1.11); POTASSIUM 4.2 mmol/L (3.5-5.1)
[2021-05-06 07:43] LABS: AMYLASE 66 U/L (25-125); LIPASE 67 U/L (8-78)
[2021-05-06] MEDS: INSULIN LISPRO 100 UNIT/1 ML 3ML VIAL SQ SCH ×4 (08:22→21:23)
[2021-05-06] MEDS: METOPROLOL TARTRATE 25 MG TAB PO SCH ×2 (08:28→17:00)
[2021-05-06] MEDS: MIDODRINE HCL 5 MG TABLET PO SCH ×3 (08:46→16:00)
[2021-05-06] MEDS: CLOPIDOGREL BISULFATE 75 MG TAB PO SCH (08:46)
[2021-05-06] MEDS: LACTOBACILLUS ACIDOPHILUS CAPSULE PO SCH ×2 (08:46→18:07)
[2021-05-06] MEDS: ASPIRIN 81 MG ENTERIC COATED PO SCH (08:46)
[2021-05-06] MEDS: HYDROXYZINE HCL 10 MG TAB PO SCH (21:22)
[2021-05-06] MEDS: ATORVASTATIN 40 MG TAB PO SCH (21:22)
[2021-05-07] VITALS (23 sets, daily range): BP systolic 81–124; BP diastolic 40–73
[2021-05-07 06:40] LABS: BASOPHILS # (AUTO) 0.1 (0.0-0.1); BASOPHILS % 0.7 % (0.0-1.0); EOSINOPHILS # (AUTO) 0.4 (0.0-0.4); HEMATOCRIT 26.8 % (34.2-44.1); HEMOGLOBIN 8.4 g/dL (12.0-16.0); LYMPHOCYTES # (AUTO) 1.8 (1.0-3.2); LYMPHOCYTES % 13.5 % (18.0-39.1); MEAN CORPUSCULAR HEMOGLOBIN 30.8 pg (28-32); MEAN CORPUSCULAR HGB CONC 31.3 g/dL (31-35); MEAN CORPUSCULAR VOLUME 98.2 fL (81-99); NEUTROPHILS # (AUTO) 9.9 (2.1-6.9); NEUTROPHILS % 73.8 % (38.7-80.0); PLATELET COUNT 346 x10e3/uL (140-360); RED BLOOD COUNT 2.73 x10e6/uL (3.6-5.1); RED CELL DISTRIBUTION WIDTH 15.4 % (11.7-14.4)
[2021-05-07] MEDS: METOPROLOL TARTRATE 25 MG TAB PO SCH ×2 (09:00→16:49)
[2021-05-07] MEDS: INSULIN LISPRO 100 UNIT/1 ML 3ML VIAL SQ SCH ×4 (09:41→21:09)
[2021-05-07] MEDS: MIDODRINE HCL 5 MG TABLET PO SCH ×3 (09:41→17:32)
[2021-05-07] MEDS: CLOPIDOGREL BISULFATE 75 MG TAB PO SCH (09:41)
[2021-05-07] MEDS: ASPIRIN 81 MG ENTERIC COATED PO SCH (09:41)
[2021-05-07] MEDS: LACTOBACILLUS ACIDOPHILUS CAPSULE PO SCH ×2 (09:41→17:33)
[2021-05-07] MEDS ORDERED: LIDOCAINE/PRILOCAINE 2.5-2.5% KIT TOP PRN (10:45)
[2021-05-07] MEDS: ATORVASTATIN 40 MG TAB PO SCH (21:09)
[2021-05-07] MEDS: HYDROXYZINE HCL 10 MG TAB PO SCH (21:09)
[2021-05-08] VITALS (16 sets, daily range): BP systolic 93–116; BP diastolic 44–72
[2021-05-08 06:37] LABS: BASOPHILS # (AUTO) 0.1 (0.0-0.1); BASOPHILS % 0.8 % (0.0-1.0); EOSINOPHILS # (AUTO) 0.4 (0.0-0.4); EOSINOPHILS % 3.2 % (0.0-6.0); HEMATOCRIT 25.8 % (34.2-44.1); HEMOGLOBIN 7.9 g/dL (12.0-16.0); LYMPHOCYTES # (AUTO) 2.5 (1.0-3.2); LYMPHOCYTES % 18.6 % (18.0-39.1); MEAN CORPUSCULAR HEMOGLOBIN 30.4 pg (28-32); MEAN CORPUSCULAR HGB CONC 30.6 g/dL (31-35); MEAN CORPUSCULAR VOLUME 99.2 fL (81-99); MONOCYTES # (AUTO) 0.9 (0.2-0.8); MONOCYTES % 6.4 % (4.4-11.3); NEUTROPHILS # (AUTO) 9.5 (2.1-6.9); NEUTROPHILS % 69.2 % (38.7-80.0); PLATELET COUNT 355 x10e3/uL (140-360); RED CELL DISTRIBUTION WIDTH 15.3 % (11.7-14.4)
[2021-05-08 06:48] LABS: ANION GAP 18.6 mmol/L (8-16); CALCIUM 9.5 mg/dL (8.4-10.2); CREATININE, SERUM 6.05 mg/dL (0.57-1.11); POTASSIUM 4.6 mmol/L (3.5-5.1)
[2021-05-08] MEDS: INSULIN LISPRO 100 UNIT/1 ML 3ML VIAL SQ SCH ×4 (07:12→21:51)
[2021-05-08] MEDS: CLOPIDOGREL BISULFATE 75 MG TAB PO SCH (08:57)
[2021-05-08] MEDS: MIDODRINE HCL 5 MG TABLET PO SCH ×3 (08:57→15:57)
[2021-05-08] MEDS: ASPIRIN 81 MG ENTERIC COATED PO SCH (08:57)
[2021-05-08] MEDS: LACTOBACILLUS ACIDOPHILUS CAPSULE PO SCH ×2 (08:58→16:15)
[2021-05-08] MEDS: METOPROLOL TARTRATE 25 MG TAB PO SCH ×2 (09:00→16:15)
[2021-05-08] MEDS: IRON SUCROSE 100 MG in SODIUM CHLORIDE 0.9% 100 ML 100 ML IV SCH (13:27)
[2021-05-08] MEDS: ATORVASTATIN 40 MG TAB PO SCH (21:49)
[2021-05-08] MEDS: HYDROXYZINE HCL 10 MG TAB PO SCH (21:49)
[2021-05-09] VITALS (19 sets, daily range): BP systolic 93–134; BP diastolic 46–82
[2021-05-09 07:47] LABS: BASOPHILS # (AUTO) 0.1 (0.0-0.1); BASOPHILS % 0.8 % (0.0-1.0); EOSINOPHILS # (AUTO) 0.3 (0.0-0.4); EOSINOPHILS % 2.1 % (0.0-6.0); HEMATOCRIT 25.2 % (34.2-44.1); HEMOGLOBIN 7.8 g/dL (12.0-16.0); LYMPHOCYTES # (AUTO) 2.4 (1.0-3.2); LYMPHOCYTES % 18.4 % (18.0-39.1); MEAN CORPUSCULAR HEMOGLOBIN 30.7 pg (28-32); MEAN CORPUSCULAR VOLUME 99.2 fL (81-99); MONOCYTES # (AUTO) 0.8 (0.2-0.8); NEUTROPHILS # (AUTO) 9.1 (2.1-6.9); NEUTROPHILS % 71.4 % (38.7-80.0); PLATELET COUNT 322 x10e3/uL (140-360); RED BLOOD COUNT 2.54 x10e6/uL (3.6-5.1); RED CELL DISTRIBUTION WIDTH 15.8 % (11.7-14.4)
[2021-05-09] MEDS: INSULIN LISPRO 100 UNIT/1 ML 3ML VIAL SQ SCH ×4 (07:51→21:00)
[2021-05-09] MEDS: ASPIRIN 81 MG ENTERIC COATED PO SCH (07:54)
[2021-05-09] MEDS: MIDODRINE HCL 5 MG TABLET PO SCH ×3 (07:54→16:10)
[2021-05-09] MEDS: LACTOBACILLUS ACIDOPHILUS CAPSULE PO SCH ×2 (07:55→17:31)
[2021-05-09] MEDS: METOPROLOL TARTRATE 25 MG TAB PO SCH ×4 (07:55→17:32)
[2021-05-09] MEDS: CLOPIDOGREL BISULFATE 75 MG TAB PO SCH (07:55)
[2021-05-09 08:18] LABS: CALCIUM 9.5 mg/dL (8.4-10.2); CREATININE, SERUM 7.61 mg/dL (0.57-1.11)
[2021-05-09] MEDS: EPOETIN ALFA-EPBX 10,000 UNIT/ML VIAL SC SCH (10:09)
[2021-05-09] MEDS: IRON SUCROSE 100 MG in SODIUM CHLORIDE 0.9% 100 ML 100 ML IV SCH (14:28)
[2021-05-09] MEDS: ATORVASTATIN 40 MG TAB PO SCH (21:32)
[2021-05-09] MEDS: HYDROXYZINE HCL 10 MG TAB PO SCH (21:32)
[2021-05-10 00:20] VITALS: BP 107/43
[2021-05-10 04:49] VITALS: BP 96/57
[2021-05-10] MEDS: INSULIN LISPRO 100 UNIT/1 ML 3ML VIAL SQ SCH ×4 (07:30→21:31)
[2021-05-10 07:35] VITALS: BP 127/88
[2021-05-10 08:58] VITALS: BP 127/88
[2021-05-10] MEDS: CLOPIDOGREL BISULFATE 75 MG TAB PO SCH (09:50)
[2021-05-10] MEDS: LACTOBACILLUS ACIDOPHILUS CAPSULE PO SCH ×2 (09:50→16:54)
[2021-05-10] MEDS: MIDODRINE HCL 5 MG TABLET PO SCH ×3 (09:50→16:53)
[2021-05-10] MEDS: ASPIRIN 81 MG ENTERIC COATED PO SCH (09:50)
[2021-05-10] MEDS: METOPROLOL TARTRATE 25 MG TAB PO SCH ×2 (09:50→16:54)
[2021-05-10] MEDS ORDERED: SODIUM CHLORIDE 0.9% 250ML 250 ML IV ONE (13:00)
[2021-05-10] MEDS: IRON SUCROSE 100 MG in SODIUM CHLORIDE 0.9% 100 ML 100 ML IV SCH (13:32)
[2021-05-10 20:00] VITALS: BP 102/66
[2021-05-10] MEDS: ATORVASTATIN 40 MG TAB PO SCH (21:30)
[2021-05-10] MEDS: HYDROXYZINE HCL 10 MG TAB PO SCH (21:30)
[2021-05-10 22:00] VITALS: BP 102/66
[2021-05-11] VITALS: BP 102/55
[2021-05-11 04:00] VITALS: BP 102/42
[2021-05-11] MEDS: INSULIN LISPRO 100 UNIT/1 ML 3ML VIAL SQ SCH ×2 (07:30→11:30)
[2021-05-11] MEDS: MIDODRINE HCL 5 MG TABLET PO SCH ×2 (08:13→13:02)
[2021-05-11] MEDS: ALBUMIN 25% 12.5GM 0.25 GM/ML BTL IV PRN (08:13)
[2021-05-11] MEDS: ASPIRIN 81 MG ENTERIC COATED PO SCH (09:00)
[2021-05-11] MEDS: CLOPIDOGREL BISULFATE 75 MG TAB PO SCH (09:00)
[2021-05-11] MEDS: LACTOBACILLUS ACIDOPHILUS CAPSULE PO SCH (09:00)
[2021-05-11 09:48] VITALS: BP 102/42
[2021-05-11] MEDS: EPOETIN ALFA-EPBX 10,000 UNIT/ML VIAL SC SCH (10:00)
[2021-05-11 12:04] LABS: ANION GAP 18.3 mmol/L (8-16); CALCIUM 9.1 mg/dL (8.4-10.2); CREATININE, SERUM 2.55 mg/dL (0.57-1.11); MAGNESIUM 1.9 MG/DL (1.3-2.1); PHOSPHORUS 1.9 MG/DL (2.3-4.7); POTASSIUM 4.3 mmol/L (3.5-5.1)
[2021-05-11 13:08] LABS: BASOPHILS # (AUTO) 0.1 (0.0-0.1); BASOPHILS % 0.6 % (0.0-1.0); EOSINOPHILS # (AUTO) 0.2 (0.0-0.4); EOSINOPHILS % 1.2 % (0.0-6.0); HEMOGLOBIN 10.4 g/dL (12.0-16.0); LYMPHOCYTES # (AUTO) 2.1 (1.0-3.2); LYMPHOCYTES % 12.6 % (18.0-39.1); MEAN CORPUSCULAR HEMOGLOBIN 30.3 pg (28-32); MEAN CORPUSCULAR HGB CONC 30.6 g/dL (31-35); MEAN CORPUSCULAR VOLUME 99.1 fL (81-99); MONOCYTES # (AUTO) 0.7 (0.2-0.8); MONOCYTES % 4.3 % (4.4-11.3); NEUTROPHILS # (AUTO) 13.6 (2.1-6.9); PLATELET COUNT 256 x10e3/uL (140-360); RED BLOOD COUNT 3.43 x10e6/uL (3.6-5.1); RED CELL DISTRIBUTION WIDTH 18.2 % (11.7-14.4)
[2021-05-11] MEDS: IRON SUCROSE 100 MG in SODIUM CHLORIDE 0.9% 100 ML 100 ML IV SCH (14:00)
[2021-05-11] MEDS: ACETAMINOPHEN 325 MG TAB PO PRN (14:19)
[2021-05-11] MEDS ORDERED: MIDODRINE HCL5 MG PO (15:28)
[2021-05-11] MEDS ORDERED: PLAVIX75 MG PO (15:28)
[2021-05-11] MEDS ORDERED: ASPIRIN EC81 MG PO (15:28)
[2021-05-11] MEDS ORDERED: PANTOPRAZOLE SO40 MG PO (15:28)
== END 2021-05-11 16:02 | disposition home or self-care (01) | DRG 853 ==
LOC: ER 15:51 → ERHOLD 17:25 → IMCU 19:13 → ICU 04-27 01:30 → MED/SURG2 05-09 23:28
PROVIDERS: ADMIT Internal Medicine; ATTEND Internal Medicine
PROC: 5A1D70Z Performance of Urinary Filtration, Intermittent, Less than 6 Hours Per Day (ICD-10-PCS; 2021-04-25)
PROC: 30233N1 Transfusion of Nonautologous Red Blood Cells into Peripheral Vein, Percutaneous Approach (ICD-10-PCS; 2021-04-25)
PROC: 02HV33Z Insertion of Infusion Device into Superior Vena Cava, Percutaneous Approach (ICD-10-PCS; 2021-04-25)
PROC: 027034Z Dilation of Coronary Artery, One Artery with Drug-eluting Intraluminal Device, Percutaneous Approach (ICD-10-PCS; principal; 2021-04-27)
PROC: 5A02210 Assistance with Cardiac Output using Balloon Pump, Continuous (ICD-10-PCS; 2021-04-27)
PROC: 4A023N7 Measurement of Cardiac Sampling and Pressure, Left Heart, Percutaneous Approach (ICD-10-PCS; 2021-04-27)
PROC: B2111ZZ Fluoroscopy of Multiple Coronary Arteries using Low Osmolar Contrast (ICD-10-PCS; 2021-04-27)
PROC: B2151ZZ Fluoroscopy of Left Heart using Low Osmolar Contrast (ICD-10-PCS; 2021-04-27)
DX: A41.9 Sepsis, unspecified organism (principal); N18.6 End stage renal disease; I21.4 Non-ST elevation (NSTEMI) myocardial infarction; J18.9 Pneumonia, unspecified organism; R57.0 Cardiogenic shock; G93.41 Metabolic encephalopathy; R65.21 Severe sepsis with septic shock; I50.23 Acute on chronic systolic (congestive) heart failure; J96.00 Acute respiratory failure, unspecified whether with hypoxia or hypercapnia; I13.2 Hypertensive heart and chronic kidney disease with heart failure and with stage 5 chronic kidney disease, or end stage renal disease; I47.1 Supraventricular tachycardia; N25.81 Secondary hyperparathyroidism of renal origin; E87.1 Hypo-osmolality and hyponatremia; I69.351 Hemiplegia and hemiparesis following cerebral infarction affecting right dominant side; Z20.822 Contact with and (suspected) exposure to COVID-19; E11.22 Type 2 diabetes mellitus with diabetic chronic kidney disease; Z99.2 Dependence on renal dialysis; Z79.899 Other long term (current) drug therapy; R16.0 Hepatomegaly, not elsewhere classified; D63.1 Anemia in chronic kidney disease; E87.5 Hyperkalemia; E11.21 Type 2 diabetes mellitus with diabetic nephropathy; R19.7 Diarrhea, unspecified; Z95.810 Presence of automatic (implantable) cardiac defibrillator; E66.9 Obesity, unspecified; Z68.32 Body mass index [BMI] 32.0-32.9, adult
CPT/HCPCS: 33970; 36415; 71045; 74470; 76700; 76937; 80048; 80053; 80061; 82150; 82550; 82553; 82948; 83036; 83690; 83735; 83880; 84100; 84295; 84484; 85025; 85347; 85610; 85730; 86704; 86706; 86850; 86900; 86920; 87040; 87340; 87493; 90962; 92928; 93005; 93306; 93454; 94799; 96372; 97139; 99152; 99153; 99251; 99285; C1725; C1766; C1769; C1874; J0456; J0692; J1250; J1644; J1756; J2001; J2250; J2370; J2405; J2550; J3010; J3370; J3410; J7030; J7040; J7050; P9016; P9045; P9047; Q9967; U0002

== ENCOUNTER 2021-05-19 09:30 | Inpatient (IN) | payer MEDICARE ==
[~2021-05-19] VITALS: Ht 154.9 cm; Wt 73.5 kg
[~2021-05-19 09:30] MED LIST changes: +ASPIRIN EC81 MG PO; +ATORVASTATIN CA20 MG PO; +CALCIUM ACETAT667 M1 PO; +FEXOFENADINE H180 MG PO; +HYDROXYZINE HCL10 MG PO; +MIDODRINE HCL5 MG PO; +PANTOPRAZOLE SO40 MG PO; +PLAVIX75 MG PO
[2021-05-19] MEDS ORDERED: SODIUM CHLORIDE 0.9% 1000ML 1,000 ML IV STA (09:53)
[2021-05-19 10:50] LABS: BASOPHILS # (AUTO) 0.1 (0.0-0.1); BASOPHILS % 0.6 % (0.0-1.0); EOSINOPHILS # (AUTO) 0.3 (0.0-0.4); EOSINOPHILS % 2.4 % (0.0-6.0); HEMATOCRIT 28.3 % (34.2-44.1); HEMOGLOBIN 8.5 g/dL (12.0-16.0); LYMPHOCYTES # (AUTO) 1.3 (1.0-3.2); LYMPHOCYTES % 11.9 % (18.0-39.1); MEAN CORPUSCULAR HEMOGLOBIN 29.6 pg (28-32); MEAN CORPUSCULAR VOLUME 98.6 fL (81-99); MONOCYTES # (AUTO) 0.9 (0.2-0.8); MONOCYTES % 7.7 % (4.4-11.3); NEUTROPHILS # (AUTO) 8.2 (2.1-6.9); PLATELET COUNT 379 x10e3/uL (140-360); RED BLOOD COUNT 2.87 x10e6/uL (3.6-5.1); RED CELL DISTRIBUTION WIDTH 16.9 % (11.7-14.4)
[2021-05-19 11:03] LABS: INR 1.02; PROTHROMBIN TIME 14.2 seconds (11.9-14.5)
[2021-05-19 11:04] LABS: ALBUMIN 3.3 g/dL (3.5-5.0); ANION GAP 19.8 mmol/L (8-16); CALCIUM 9.4 mg/dL (8.4-10.2); CREATININE, SERUM 4.79 mg/dL (0.57-1.11); POTASSIUM 3.8 mmol/L (3.5-5.1)
[2021-05-19 11:04] LABS: PARTIAL THROMBOPLASTIN TIME 20.9 seconds (23.8-35.5)
[2021-05-19] MEDS ORDERED: SODIUM CHLORIDE 0.9% 1000ML 500 ML IV ONE (12:30)
[2021-05-19 14:02] LABS: CHOL/HDL RATIO 3.1 (3.0-3.6)
[2021-05-19 15:04] LABS: FERRITIN 2680.85 ng/mL (4.63-204.00)
[2021-05-19 15:46] VITALS: BP 99/76
[2021-05-19] MEDS: MIDODRINE HCL 5 MG TABLET PO SCH (16:49)
[2021-05-19 17:13] VITALS: BP 99/76
[2021-05-19 20:00] VITALS: BP 114/68
[2021-05-19] MEDS: INSULIN GLARGINE 100 UNITS/ML VIAL SQ SCH (21:00)
[2021-05-19] MEDS ORDERED: INSULIN GLARGINE SQ SCH (21:00)
[2021-05-19] MEDS: ATORVASTATIN 40 MG TAB PO SCH (21:23)
[2021-05-19] MEDS: HYDROXYZINE HCL 10 MG TAB PO SCH (21:23)
[2021-05-19] MEDS: METOPROLOL SUCCINATE 25 MG TAB XL PO SCH (21:25)
[2021-05-19 23:02] LABS: HEMATOCRIT 26.5 % (34.2-44.1); HEMOGLOBIN 7.7 g/dL (12.0-16.0)
[2021-05-20] VITALS (8 sets, daily range): BP systolic 97–119; BP diastolic 53–76
[2021-05-20] MEDS: MIDODRINE HCL 5 MG TABLET PO SCH ×3 (08:00→16:03)
[2021-05-20] MEDS: LORATADINE 10 MG TAB PO SCH ×2 (09:00→09:28)
[2021-05-20] MEDS ORDERED: ALBUMIN 25% 12.5GM 0.25 GM/ML BTL IV PRN (09:45)
[2021-05-20] MEDS ORDERED: SODIUM CHLORIDE 0.9% 1000ML 2,000 ML IV PRN (09:45)
[2021-05-20 14:05] LABS: BASOPHILS # (AUTO) 0.1 (0.0-0.1); BASOPHILS % 0.5 % (0.0-1.0); EOSINOPHILS # (AUTO) 0.2 (0.0-0.4); EOSINOPHILS % 1.9 % (0.0-6.0); HEMATOCRIT 25.4 % (34.2-44.1); HEMOGLOBIN 7.5 g/dL (12.0-16.0); LYMPHOCYTES # (AUTO) 1.7 (1.0-3.2); LYMPHOCYTES % 16.2 % (18.0-39.1); MEAN CORPUSCULAR HGB CONC 29.5 g/dL (31-35); MEAN CORPUSCULAR VOLUME 98.1 fL (81-99); MONOCYTES # (AUTO) 0.6 (0.2-0.8); MONOCYTES % 6.2 % (4.4-11.3); NEUTROPHILS # (AUTO) 7.6 (2.1-6.9); NEUTROPHILS % 73.6 % (38.7-80.0); PLATELET COUNT 355 x10e3/uL (140-360); RED BLOOD COUNT 2.59 x10e6/uL (3.6-5.1); RED CELL DISTRIBUTION WIDTH 17.2 % (11.7-14.4)
[2021-05-20 14:27] LABS: ANION GAP 19.4 mmol/L (8-16); CALCIUM 8.6 mg/dL (8.4-10.2); CREATININE, SERUM 6.3 mg/dL (0.57-1.11); POTASSIUM 4.4 mmol/L (3.5-5.1)
[2021-05-20 15:35] LABS: HEMATOCRIT 26.2 % (34.2-44.1); HEMOGLOBIN 7.9 g/dL (12.0-16.0)
[2021-05-20 20:51] LABS: HYPOCHROMASIA MODERATE; PLATELET ESTIMATE ADEQUATE; PLATELET MORPHOLOGY COMMENT NORMAL
[2021-05-20] MEDS: ATORVASTATIN 40 MG TAB PO SCH (20:53)
[2021-05-20] MEDS: HYDROXYZINE HCL 10 MG TAB PO SCH (20:53)
[2021-05-20] MEDS: METOPROLOL SUCCINATE 25 MG TAB XL PO SCH (20:54)
[2021-05-20] MEDS: INSULIN GLARGINE 100 UNITS/ML VIAL SQ SCH (20:54)
[2021-05-20 22:56] LABS: HEMATOCRIT 26.1 % (34.2-44.1); HEMOGLOBIN 7.8 g/dL (12.0-16.0)
[2021-05-21] VITALS (7 sets, daily range): BP systolic 99–110; BP diastolic 49–62
[2021-05-21] MEDS: ASPIRIN 81 MG ENTERIC COATED PO SCH (08:48)
[2021-05-21] MEDS: CLOPIDOGREL BISULFATE 75 MG TAB PO SCH (08:48)
[2021-05-21] MEDS: LORATADINE 10 MG TAB PO SCH (08:48)
[2021-05-21] MEDS: MIDODRINE HCL 5 MG TABLET PO SCH ×3 (08:48→16:50)
[2021-05-21 10:02] LABS: BASOPHILS # (AUTO) 0.1 (0.0-0.1); BASOPHILS % 0.4 % (0.0-1.0); EOSINOPHILS # (AUTO) 0.3 (0.0-0.4); EOSINOPHILS % 2.2 % (0.0-6.0); HEMATOCRIT 27.5 % (34.2-44.1); HEMOGLOBIN 8.3 g/dL (12.0-16.0); LYMPHOCYTES # (AUTO) 1.9 (1.0-3.2); LYMPHOCYTES % 15.6 % (18.0-39.1); MEAN CORPUSCULAR HEMOGLOBIN 29.5 pg (28-32); MEAN CORPUSCULAR HGB CONC 30.2 g/dL (31-35); MEAN CORPUSCULAR VOLUME 97.9 fL (81-99); MONOCYTES # (AUTO) 0.7 (0.2-0.8); NEUTROPHILS # (AUTO) 9.1 (2.1-6.9); NEUTROPHILS % 72.8 % (38.7-80.0); PLATELET COUNT 358 x10e3/uL (140-360); RED BLOOD COUNT 2.81 x10e6/uL (3.6-5.1); RED CELL DISTRIBUTION WIDTH 17.4 % (11.7-14.4)
[2021-05-21 10:21] LABS: ANION GAP 22.4 mmol/L (8-16); CALCIUM 9.6 mg/dL (8.4-10.2); CREATININE, SERUM 6.05 mg/dL (0.57-1.11); POTASSIUM 4.4 mmol/L (3.5-5.1)
[2021-05-21] MEDS ORDERED: PEG (High)/E-LYTE SOLN 4,000 ML BTL PO ONE (14:00)
[2021-05-21 15:38] LABS: HEMOGLOBIN 8.5 g/dL (12.0-16.0)
[2021-05-21] MEDS: INSULIN GLARGINE 100 UNITS/ML VIAL SQ SCH (20:57)
[2021-05-21] MEDS: METOPROLOL SUCCINATE 25 MG TAB XL PO SCH (20:58)
[2021-05-21] MEDS: HYDROXYZINE HCL 10 MG TAB PO SCH (21:20)
[2021-05-21] MEDS: ATORVASTATIN 40 MG TAB PO SCH (21:20)
[2021-05-22] VITALS: BP 104/59
[2021-05-22 04:00] VITALS: BP 105/53
[2021-05-22 05:42] LABS: HEMATOCRIT 26.3 % (34.2-44.1)
[2021-05-22] MEDS ORDERED: PANTOPRAZOLE SO40 MG PO (06:31)
[2021-05-22 07:43] VITALS: BP 110/51
[2021-05-22 08:00] VITALS: BP 110/51
[2021-05-22] MEDS ORDERED: PANTOPRAZOLE SOD 40 MG TABEC PO SCH (08:00)
[2021-05-22] MEDS: MIDODRINE HCL 5 MG TABLET PO SCH (08:10)
[2021-05-22] MEDS: ASPIRIN 81 MG ENTERIC COATED PO SCH (08:12)
[2021-05-22] MEDS: LORATADINE 10 MG TAB PO SCH (08:12)
[2021-05-22] MEDS: CLOPIDOGREL BISULFATE 75 MG TAB PO SCH (08:12)
[2021-05-22 11:00] VITALS: BP 106/77
== END 2021-05-22 12:39 | disposition home or self-care (01) | DRG 377 ==
LOC: ER 09:41 → ERHOLD 13:30 → MED/SURG 15:15
PROVIDERS: ADMIT Internal Medicine; ATTEND Internal Medicine
PROC: 5A1D70Z Performance of Urinary Filtration, Intermittent, Less than 6 Hours Per Day (ICD-10-PCS; principal; 2021-05-20)
DX: K57.31 Diverticulosis of large intestine without perforation or abscess with bleeding (principal); N18.6 End stage renal disease; I13.2 Hypertensive heart and chronic kidney disease with heart failure and with stage 5 chronic kidney disease, or end stage renal disease; I50.22 Chronic systolic (congestive) heart failure; N25.81 Secondary hyperparathyroidism of renal origin; E11.22 Type 2 diabetes mellitus with diabetic chronic kidney disease; Z99.2 Dependence on renal dialysis; I25.10 Atherosclerotic heart disease of native coronary artery without angina pectoris; Z95.5 Presence of coronary angioplasty implant and graft; I95.9 Hypotension, unspecified; Z95.810 Presence of automatic (implantable) cardiac defibrillator; Z91.013 Allergy to seafood; Z86.73 Personal history of transient ischemic attack (TIA), and cerebral infarction without residual deficits; I25.2 Old myocardial infarction; Z82.49 Family history of ischemic heart disease and other diseases of the circulatory system; Z79.82 Long term (current) use of aspirin
CPT/HCPCS: 36415; 80048; 80053; 80061; 82270; 82607; 82728; 82948; 83036; 83540; 84466; 85014; 85018; 85025; 85610; 85730; 86850; 86900; 90962; 94799; 97139; 99251; 99284; J3410; J7030; U0002